=== PATIENT | male | born 1960 | race Native Hawaiian/Other Pacific Islander ===

== ENCOUNTER 2016-11-15 17:16 | Emergency (ER) | payer OTHER ==
[~2016-11-15] VITALS: Ht 188 cm; Wt 80.7 kg
[2016-11-15] MEDS ORDERED: ROBAXIN500 MG PO ×2 (17:20→17:26)
[2016-11-15] MEDS ORDERED: LORTAB 5-325 MG1 TAB PO (17:20)
[2016-11-15] MEDS ORDERED: CIPRO XR500 MG PO (17:21)
== END 2016-11-15 19:15 | disposition home or self-care (01) ==
LOC: ED 17:16
DX: R31.9 Hematuria, unspecified (principal); M54.9 Dorsalgia, unspecified; G89.29 Other chronic pain
CPT/HCPCS: 81000; 99282